=== PATIENT | female | born 1965 | race Caucasian/White ===

== ENCOUNTER 2017-07-29 07:36 | Inpatient (IN) | payer BC, OTHER ==
[2017-07-27 10:54] VITALS: BMI 42.0
[2017-07-29] MEDS ORDERED: BUPIVACAINE HCL/PF 0.5% (5MG/ML) 10 ML VIAL ONE (08:32)
[2017-07-29] MEDS ORDERED: FLU VACCINE QUAD 60 MCG/0.5 ML (MDV 17-18) IM ONE (08:52)
[2017-07-29] MEDS ORDERED: ceFAZolin SODIUM 1 GM VIAL ONE (09:33)
[2017-07-29] MEDS ORDERED: LIDOCAINE HCL/PF 2% SDV 5ML VIAL ONE (09:33)
[2017-07-29] MEDS ORDERED: fentaNYL CITRATE 250 MCG/5 ML VIAL ONE ×2 (09:33→10:19)
[2017-07-29] MEDS ORDERED: ROCURONIUM BROMIDE 50 MG/5 ML VIAL ONE ×2 (09:34→10:19)
[2017-07-29] MEDS ORDERED: PROPOFOL 20 ML ONE ×2 (09:34)
[2017-07-29] MEDS ORDERED: MIDAZOLAM HCL 2 MG/2 ML SINGLE DOSE VIAL ONE ×2 (09:34)
[2017-07-29] MEDS ORDERED: ceFAZolin SODIUM 1 GM VIAL IVPB ONE (09:50)
[2017-07-29] MEDS ORDERED: HYDROCORTISONE SOD SUCCINATE 2 ML ONE (09:52)
[2017-07-29] MEDS ORDERED: PROMETHAZINE HCL 25 MG/1 ML VIAL IVPUSH PRN (10:28)
[2017-07-29] MEDS ORDERED: LACTATED RINGERS SOLUTION 1,000 ML IV SCH (10:30)
[2017-07-29] MEDS ORDERED: BUPIVACAINE HCL/PF 0.5% (5MG/ML) 10 ML VIAL IJ ONE ×2 (10:34→11:10)
--- NOTE | 2017-07-29 10:41 | HP ---
DATE OF ADMISSION: 07/29/2017 CHIEF COMPLAINT: Morbid obesity. HISTORY OF PRESENT ILLNESS: This patient is a 52-year-old woman with morbid obesity for many years despite multiple attempts at dietary weight loss. She received nutrition, psychological, cardiac, and pulmonary evaluation and clearance prior to undergoing admission for elective laparoscopic sleeve gastrectomy surgery. PAST MEDICAL HISTORY: Significant for asthma and hypothyroidism. No previous surgeries. MEDICATIONS: Include: 1. Synthroid. 2. Steroid for the asthma. 3. Inhaler. 4. Vitamin D. ALLERGIES: Patient has no known allergies. REVIEW OF SYSTEMS: General: Within normal limits. Cardiovascular: Within normal limits. Respiratory: Occasional wheezing. Musculoskeletal: Within normal limits. Gastrointestinal: Within normal limits. PHYSICAL EXAMINATION: General: Awake, alert, in no acute distress. HEENT: No masses palpated. Lungs: Clear bilaterally. No wheezing noted. Heart: Regular sinus rhythm. Abdomen: Noted to be obese, soft, nontender on palpation. Extremities: Within normal limits. IMPRESSION: Morbid obesity. PLAN: OR for laparoscopic vertical sleeve gastrectomy, possible open vertical sleeve gastrectomy. Aria [id number]
[2017-07-29] MEDS ORDERED: GLYCOPYRROLATE 0.2 MG/1 ML VIAL ONE (10:56)
[2017-07-29] MEDS ORDERED: NEOSTIGMINE METHYLSULFATE 0.5 MG/ML - 10 ML MDV ONE (10:57)
[2017-07-29] MEDS ORDERED: METOCLOPRAMIDE HCL INJECTION 10 MG/2 ML VIAL IVPUSH PRN (11:22)
--- NOTE | 2017-07-29 11:28 | OP ---
Operative Note - Note: Operative Date: 07/29/17 Pre-Operative Diagnosis: Morbid Obesity. Asthma Operation: Laparoscopic Vertical Sleeve Gastrectomy. Diagnostic Laparoscopy Findings: Greater Curve Sleeve Gastrectomy performed with #[address] Implants: none Post-Operative Diagnosis: Same as Pre-op Surgeon: Андрей Still Nurse Examiner: Michael Perry Anesthesiologist/BUNDLER: Saloni Osborne Anesthesia: General Specimens Removed: Greater curve of stomach. Wedge Biopsy left lobe of liver Estimated Blood Loss (mls): 30 Drains & Tubes with Location: none Operative Report Dictated: Yes
--- NOTE | 2017-07-29 11:38 | OP ---
Operative Note - Note: Operative Date: 07/29/17 Pre-Operative Diagnosis: Morbid obesity. Vertical sleeve gastrectomy. Rule outleak/stricture Operation: Upper endoscopy/EGD Findings: no leak/obstruction/stricture Post-Operative Diagnosis: Same as Pre-op Surgeon: Michael Perry Anesthesia: General Specimens Removed: None Estimated Blood Loss (mls): 0 Operative Report Dictated: Yes
[2017-07-29] MEDS ORDERED: HYDROmorphone HCL CARPU-JECT 2 MG/1 ML DISP.SYRIN ONE ×2 (11:42→12:23)
[2017-07-29] MEDS: HYDROmorphone HCL CARPU-JECT 1 MG/1 ML DISP.SYRIN IVPUSH PRN ×4 (11:43→13:20)
[2017-07-29] MEDS: METOCLOPRAMIDE HCL INJECTION 10 MG/2 ML VIAL IVPUSH SCH ×2 (12:25→17:49)
--- NOTE | 2017-07-29 12:40 | OP ---
DATE OF OPERATION: 07/29/2017 PREOPERATIVE DIAGNOSIS: 1. Morbid obesity. 2. Asthma. POSTOPERATIVE DIAGNOSIS: 1. Morbid obesity. 2. Asthma. 3. Hiatal hernia. 4. Hepatomegaly. PROCEDURE PERFORMED: 1. Laparoscopic vertical sleeve gastrectomy. 2. Diagnostic laparoscopy. 3. Wedge biopsy of the left lobe of the liver. OPERATING SURGEON: Андрей Still M.D. DENTAL SALES REPRESENTATIVE SURGEON: Michael Perry M.D. ANESTHESIA: General. OPERATIVE PROCEDURE: The patient was brought into the operating room, placed on the operating table in the supine position. All precautions were taken initially including padding for the back and the feet, and Venodyne boots were placed on both lower extremities. At that point the abdomen was prepped and draped in the usual manner. A Veress needle was placed in the left upper quadrant, and a pneumoperitoneum was established. A No. 12 bladeless trocar was placed in the left upper quadrant. Through that trocar, a laparoscopic camera was placed. Under direct vision, a No. 15 bladeless trocar in the midline in a supraumbilical position followed by a No. 5 bladeless trocar in the right upper quadrant, and a No. 5 bladeless trocar below the left costal margin. A Denise liver retractor was then placed in the epigastrium to retract left lobe of liver. The left lobe was noted to be extremely enlarged and with a cobblestone appearance. It was decided therefore that a wedge biopsy would be performed. With the electrocautery turned higher on the edge of the left lobe of the liver inferiorly and somewhat laterally, first the liver capsule and the parenchyma were scored with the electrocautery and a wedge piece was sent off the field to Pathology of the specimen. Some minor bleeding was noted from the parenchyma which was easily controlled with the electrocautery. At this point the patient was placed in 20-degree reverse Trendelenburg position by anesthesia. Evaluation of the proximal stomach showed what appeared to be an anterior hiatal hernia with part of the stomach reduced into the . With the assistance surgeon retracting the stomach inferiorly, the operating surgeon was able to dissect the fat around the hernia and dissect it off of the hernia. Both the left danitza and then the right danitza were dissected of all tissue and free. They were in full view and appeared to have a moderate sized defect. The Endo stick was used to place a [id number] through both the left and right crura muscles and this was tied and when completed the hernia was repaired but it was not too tight so it would not cause postoperative dysphagia. At this point attention was directed to the distal stomach where the pylorus was found. Then 6 cm were measured proximally and here on the greater curve, the operating surgeon lifted the stomach toward the anterior abdominal wall as the special education assistant surgeon retracted the gastrocolic ligament inferior. The LigaSure device was used to dissect the gastrocolic ligament and then the short gastric vessels off the greater curve of the stomach. This continued in a superior and vertical direction until the final short gastric vessel between the superior pole, spleen and proximal fundus were divided. At this juncture anesthesia advanced a No. 40 bougie. With the bougie held along the lesser curvature a series of abdirashid were performed with the first two being black load abdirashid 6 cm in length along the bougie. This was followed by a series of purple load abdirashid along the bougie until the final staple was fired in the left upper quadrant and the greater curve was now completely detached from the lesser curve. It should be noted that prior to firing abdirashid both anterior and posterior gallo were check that they were equal in the area of esophagogastric junction and approximately 1 to 1.5 cm of serosa remained on the anterior and posterior surfaces. At this juncture, the special education assistant surgeon Dr. Perry scrubbed out of the procedure and performed an upper endoscopy which will be described in his note. The upper endoscopy showed that there was no obstruction and there were no leaks coming from the staple line. At this point the resected greater curve was removed through the No. 15 trocar site and off the field as specimen. Under direct visualization the No. 12 and the No. 15 trocar sites were closed with endo closure device to prevent internal hernia and bleeding. Under direct visualization all trocars were removed and the pneumoperitoneum was released. All trocar sites then received 0.25% Marcaine and were closed with 4-0 Biosyn in subcuticular fashion. Dressings were applied. Patient awoken from anesthesia and transferred out of the operating room to Recovery Room in stable condition. ESTIMATED BLOOD LOSS: 30 mL. As an addendum it should be noted that the hiatal hernia was unexpected and did add time and complexity to the procedure and it needs to be noted. Aria [id number]
[2017-07-29 12:46] LABS: MCH 28.7 pg (25.7-33.7); MCHC 31.9 g/dl (32.0-36.0); MEAN CELL VOLUME 89.8 fl (80-96); MEAN PLT VOLUME 9.3 fl (7.5-11.1); PLATELET COUNT 255 K/MM3 (134-434); RDW 13.4 % (11.6-15.6)
--- NOTE | 2017-07-29 12:51 | OP ---
DATE OF OPERATION: 07/29/2017 SURGEON: Elise Perry MD PREOPERATIVE DIAGNOSIS: Morbid obesity undergoing a vertical sleeve gastrectomy, rule out leak/obstruction/stricture. PROCEDURE: Upper endoscopy/esophagogastroduodenoscopy. SPECIMEN: None. ESTIMATED BLOOD LOSS: Zero. ANESTHESIA: GET. REASON FOR PROCEDURE: This is a 52-year-old female who is undergoing a vertical sleeve gastrectomy by Dr. Still. DESCRIPTION OF PROCEDURE: After the stomach was transected, request was made for an upper endoscopy to rule out a leak or stricture. The entirety of the esophagus, GE junction, gastric sleeve, and staple line was inspected. There was no evidence of leak, stricture throughout its entirety. The stomach was suctioned, and the endoscope fully removed. The patient tolerated the procedure well, and the remainder of the vertical sleeve gastrectomy was continued. ELISE PERRY M.D. [id number]
[2017-07-29 13:19] LABS: ANION GAP 13 (8-16); CALCIUM 8.4 mg/dL (8.5-10.1); CO2 25 mmol/L (21-32); GLUCOSE,RANDOM 120 mg/dL (74-106)
[2017-07-29 13:23] LABS: ALBUMIN 3.4 g/dl (3.4-5.0); ALK PHOS 78 U/L (45-117); BILIRUBIN,TOTAL 0.3 mg/dL (0.2-1.0); CREATININE 0.7 mg/dL (0.55-1.02); SGOT/AST 34 U/L (15-37); SGPT/ALT 38 U/L (12-78); TOT PROT 7.6 g/dl (6.4-8.2)
[2017-07-29] MEDS: SODIUM CHLORIDE 1,000 ML IV SCH (14:00)
[2017-07-29] MEDS: HYDROmorphone HCL CARPU-JECT 1 MG/1 ML DISP.SYRIN IVPB PRN ×2 (15:50→21:19)
[2017-07-29] MEDS: ONDANSETRON 4 MG/2 ML VIAL IVPUSH PRN ×2 (16:50→22:26)
[2017-07-29] MEDS ORDERED: HYDROCORTISONE SOD SUCCINATE 100 MG/2 ML VIAL IVPB ONE (18:00)
[2017-07-29] MEDS: ENOXAPARIN NA (PORCINE) 40 MG/0.4 ML DISP.SYRIN SQ SCH (21:18)
[2017-07-29] MEDS: FAMOTIDINE 20 MG/50 ML IVPB 20 MG/50 ML MG IVPB SCH (21:18)
[2017-07-29] MEDS: ALBUTEROL SO4 2.5/IPRATROPIUM 0.5 INH SOL 3 ML VIAL.NEB. NEB SCH (23:20)
[2017-07-30] MEDS: METOCLOPRAMIDE HCL INJECTION 10 MG/2 ML VIAL IVPUSH SCH ×4 (01:01→23:58)
[2017-07-30] MEDS: ALBUTEROL SO4 2.5/IPRATROPIUM 0.5 INH SOL 3 ML VIAL.NEB. NEB SCH ×4 (05:57→23:12)
[2017-07-30] MEDS: ONDANSETRON 4 MG/2 ML VIAL IVPUSH PRN ×2 (05:58→11:05)
[2017-07-30] MEDS: SODIUM CHLORIDE 1,000 ML IV SCH ×2 (05:58→11:04)
[2017-07-30] MEDS: HYDROmorphone HCL CARPU-JECT 1 MG/1 ML DISP.SYRIN IVPB PRN ×2 (05:59→10:50)
[2017-07-30 07:35] LABS: MCH 29.4 pg (25.7-33.7); MEAN CELL VOLUME 89.1 fl (80-96); MEAN PLT VOLUME 9.1 fl (7.5-11.1); PLATELET COUNT 221 K/MM3 (134-434); RDW 13.5 % (11.6-15.6); WHITE BLOOD COUNT 9.9 K/mm3 (4.0-10.0)
[2017-07-30 08:29] LABS: ALBUMIN 2.9 g/dl (3.4-5.0); ALK PHOS 62 U/L (45-117); ANION GAP 9 (8-16); BILIRUBIN,TOTAL 0.5 mg/dL (0.2-1.0); CO2 25 mmol/L (21-32); CREATININE 0.6 mg/dL (0.55-1.02); GLUCOSE,RANDOM 95 mg/dL (74-106); SGOT/AST 43 U/L (15-37); SGPT/ALT 40 U/L (12-78); TOT PROT 6.4 g/dl (6.4-8.2)
[2017-07-30] MEDS: ENOXAPARIN NA (PORCINE) 40 MG/0.4 ML DISP.SYRIN SQ SCH ×2 (09:52→22:26)
[2017-07-30] MEDS: FAMOTIDINE 20 MG/50 ML IVPB 20 MG/50 ML MG IVPB SCH ×2 (09:53→22:25)
[2017-07-30] MEDS ORDERED: ONDANSETRON 4 MG/2 ML VIAL IVPUSH PRN (16:45)
[2017-07-30] MEDS: ACETAMINOPHEN 325 MG TABLET (FP) PO PRN ×2 (16:55→22:25)
[2017-07-30] MEDS: oxyCODONE HCL 5 MG TABLET PO PRN ×2 (16:56→22:26)
--- NOTE | 2017-07-30 23:13 | PROC ---
Procedure Note Procedure: Afebrile; VSS Pt doing well Irene PO clear liquids well No N/V UGI- no leak, no obstruction WBC-9.9 H/H- 11.7/35.5 P- Increase OOB/ambulate ' Cont DVT prophylaxis Cont incentive spirometer/ resp treatments
[2017-07-30] MEDS ORDERED: POTASSIUM CHLORIDE TABS 10 MEQ TABLET.ER (FP) PO ONE (23:16)
[2017-07-31] MEDS: ACETAMINOPHEN 325 MG TABLET (FP) PO PRN (06:02)
[2017-07-31] MEDS: METOCLOPRAMIDE HCL INJECTION 10 MG/2 ML VIAL IVPUSH SCH (06:03)
[2017-07-31] MEDS: oxyCODONE HCL 5 MG TABLET PO PRN (06:03)
[2017-07-31] MEDS: ALBUTEROL SO4 2.5/IPRATROPIUM 0.5 INH SOL 3 ML VIAL.NEB. NEB SCH (06:50)
[2017-07-31 09:56] VITALS: BP 150/78; PULSE 84; TEMP 98.7
== END 2017-07-31 09:40 | disposition home or self-care (01) | DRG 621 ==
LOC: JSAMEDAYSX 07:36 → J4W 15:20 → EDSTATUS 16:30
PROVIDERS: ADMIT Surgery; ATTEND Surgery
PROC: 0FB23ZX Excision of Left Lobe Liver, Percutaneous Approach, Diagnostic (ICD-10-PCS; 2017-07-29)
PROC: 0DB64Z3 Excision of Stomach, Percutaneous Endoscopic Approach, Vertical (ICD-10-PCS; principal; 2017-07-29 09:00)
DX: E66.01 Morbid (severe) obesity due to excess calories (principal); Z68.41 Body mass index [BMI] 40.0-44.9, adult; J45.909 Unspecified asthma, uncomplicated; K44.9 Diaphragmatic hernia without obstruction or gangrene; R16.0 Hepatomegaly, not elsewhere classified
CPT/HCPCS: 36415; 74241-TC; 80053; 84703; 85027; 86850; 86900; 86901; 88305-TC; 88307-TC; 88313-TC; 90688; 94640; 94760; G0008

== ENCOUNTER 2018-10-12 06:21 | Day surgery (SDC) | payer BC, OTHER ==
[2018-10-04 15:21] VITALS: BMI 31.0
[2018-10-12] MEDS ORDERED: CIPROFLOXACIN 0.3% EYE DROPS 5 ML BOTTLE ONE (06:40)
[2018-10-12] MEDS ORDERED: CYCLOPENTOLATE 2% OPHTH SOLN 2 ML BOTTLE ONE (06:40)
[2018-10-12] MEDS ORDERED: PHENYLEPHRINE 2.5% OPHTH SOLN 15 ML BOTTLE ONE (06:41)
[2018-10-12] MEDS ORDERED: TROPICAMIDE 1% OPHTH SOLN 15 ML BOTTLE ONE (06:41)
[2018-10-12] MEDS ORDERED: MIDAZOLAM HCL 2 MG/2 ML SINGLE DOSE VIAL ONE ×2 (07:10→08:24)
[2018-10-12] MEDS ORDERED: LIDOCAINE 1% P/F 10 MG/ML VIAL ONE (07:21)
[2018-10-12] MEDS ORDERED: BSS (NA/CA/MG/K) BALANCED SALT SOLUTION OPHTH SOLN 15 ML BOTTLE ONE (07:22)
[2018-10-12] MEDS ORDERED: TETRACAINE 0.5% OPHTH SOLN 2 ML BOTTLE ONE (07:22)
[2018-10-12] MEDS ORDERED: CARBACHOL 0.01% INTRA-OCULAR 1.5 ML VIAL ONE (07:23)
[2018-10-12] MEDS ORDERED: NEO/POLYMYX B SULF/DEXAMETH OPHTHALMIC 5ML BOTTLE ONE (07:23)
[2018-10-12] MEDS ORDERED: EPINEPHrine/PF 1 MG/1 ML (1:1,000) AMPULE ONE (07:25)
[2018-10-12 09:06] VITALS: TEMP 97.8
[2018-10-12 09:29] VITALS: BP 115/68; PULSE 69
--- NOTE | 2018-10-13 12:50 | OP ---
DATE OF OPERATION: 10/12/2018 OPERATIVE PROCEDURE: Lens Phacoemulsification with Posterior Chamber Intraocular Lens Placement, Right Eye PREOPERATIVE DIAGNOSIS: Visually Significant Cataract of Right Eye POSTOPERATIVE DIAGNOSIS: Visually Significant Cataract of Right Eye SURGEON: Clive Lucio M.D. ANESTHESIA: MAC PROCEDURE: The patient was brought to the operating room and placed under monitored anesthesia care by Anesthesia. A drop of Tetracaine was then placed over the right eye. The patient was then prepped and draped in the usual sterile manner. A speculum was then placed over the right eye. The eye was then well irrigated with copious amounts of BSS (balanced salt solution). The operating microscope was then moved into position. A paracentesis was performed using a 15 degree blade. At this point 0.5 mL of 1% preservative free-lidocaine was injected into the anterior chamber. Amvisc plus was then injected into the anterior chamber. A clear corneal incision was then formed using a 2.2 mm keratome. A capsulorrhexis was then performed in a continuous circular fashion beginning with a cystotome completed with an Utratas forceps. Hydrodissection was then performed using BSS on a cannula. The phaco probe was then introduced through the corneal wound and the cataract was removed using the phaco chop technique. Approximately 3 seconds of absolute phaco time was used. The remaining cortex was then removed using irrigation and aspiration with an I/A probe. The capsule was then filled with regular Amvisc and the capsule was noted to be intact. A previously selected foldable posterior chamber intraocular lens was then injected into the capsule through the corneal wound using a lens injector. It was then dialed into position using a Sinskey hook. The Amvisc was then removed using irrigation and aspiration. Miostat was then injected through the paracentesis to constrict the pupil. The paracentesis and corneal wound were then hydrated and noted to be water tight. A drop of Maxitrol was then placed over the eye. The speculum was removed and clear shield was taped over the eye. The patient tolerated the procedure well and there were no surgical complications. The patient was asked to follow up in my office the next day. CLIVE LUCIO M.D. [id number]
== END 2018-10-12 09:45 | disposition home or self-care (01) ==
LOC: FASU 06:21
PROVIDERS: ATTEND Ophthalmology
PROC: 08RJ3JZ Replacement of Right Lens with Synthetic Substitute, Percutaneous Approach (ICD-10-PCS; principal; 2018-10-12 08:27)
DX: H26.8 Other specified cataract (principal)
CPT/HCPCS: 84703

== ENCOUNTER 2018-10-26 10:12 | Day surgery (SDC) | payer BC ==
[2018-10-21 12:25] VITALS: BMI 31.0
[2018-10-26] MEDS: TROPICAMIDE 1% OPHTH SOLN 15 ML BOTTLE ONE ×3 (11:15→11:25)
[2018-10-26] MEDS: CIPROFLOXACIN 0.3% EYE DROPS 5 ML BOTTLE ONE ×3 (11:15→11:25)
[2018-10-26] MEDS: PHENYLEPHRINE 2.5% OPHTH SOLN 15 ML BOTTLE ONE ×3 (11:15→11:25)
[2018-10-26] MEDS: CYCLOPENTOLATE 2% OPHTH SOLN 2 ML BOTTLE ONE ×3 (11:15→11:25)
[2018-10-26] MEDS ORDERED: NEO/POLYMYX B SULF/DEXAMETH OPHTHALMIC 5ML BOTTLE ONE (11:28)
[2018-10-26] MEDS ORDERED: MIDAZOLAM HCL 2 MG/2 ML SINGLE DOSE VIAL ONE ×2 (12:20→12:29)
[2018-10-26 13:52] VITALS: TEMP 98.5
[2018-10-26 13:54] VITALS: BP 108/58; PULSE 72
== END 2018-10-26 13:55 | disposition home or self-care (01) ==
LOC: FASU 10:12
PROVIDERS: ATTEND Ophthalmology
PROC: 08RK3JZ Replacement of Left Lens with Synthetic Substitute, Percutaneous Approach (ICD-10-PCS; principal; 2018-10-26 11:30)
DX: H26.8 Other specified cataract (principal)
CPT/HCPCS: 84703

== ENCOUNTER 2020-04-15 08:02 | Day surgery (SDC) | payer BC ==
[2020-04-11 11:21] VITALS: BMI 39.1
[2020-04-15 08:17] VITALS: TEMP 98
[2020-04-15] MEDS ORDERED: LIDOCAINE HCL/PF 2% SDV 5ML VIAL ONE (08:25)
[2020-04-15] MEDS ORDERED: PROPOFOL 20 ML ONE ×4 (08:25)
[2020-04-15] MEDS ORDERED: MIDAZOLAM HCL 2 MG/2 ML SINGLE DOSE VIAL ONE (08:47)
[2020-04-15] MEDS ORDERED: ETOMIDATE 20 MG/10 ML AMPUL IVPUSH ONE (08:47)
[2020-04-15 14:24] VITALS: BP 126/59; PULSE 64
--- NOTE | 2020-04-17 14:56 | PATH ---
Surgical Pathology Report Patient Name: DELORES FIORE [facility]. Rec. #: [id number] /Age/Gender: 1965 (Age: 54) / F Account: [id number] Location: [facility] Taken: 04/15/2020 Received: 04/15/2020 Reported: 04/17/2020 Physicians: Chace Barajas M.D. Specimen(s) Received A: SECOND PORTION DUODENUM B: GASTRIC ANTRUM Clinical History GERD, screening, pre-bariatric checkup Postoperative diagnosis: Gastritis, post sleeve weight gain, normal colon Final Diagnosis A. SECOND PORTION OF DUODENUM, BIOPSY: DUODENAL MUCOSA WITH NO SIGNIFICANT PATHOLOGIC CHANGE. NO HISTOLOGIC EVIDENCE OF INTRAEPITHELIAL LYMPHOCYTOSIS. B. GASTRIC ANTRUM, BIOPSY: GASTRIC MUCOSA WITH CHRONIC GASTRITIS. IMMUNOSTAIN FOR H. PYLORI IS NEGATIVE. NEGATIVE FOR INTESTINAL METAPLASIA. Electronically Signed John Guzman M.D. Gross Description A. Received in formalin, labeled "biopsy second portion of duodenum" is a pearl, irregular portion of soft tissue measuring 0.3 cm. in greatest dimension. The specimen is submitted in toto in one cassette. B. Received in formalin, labeled "biopsy gastric antrum" are 2 pearl, irregular portions of soft tissue measuring 0.3 and 0.4 cm. in greatest dimension. The specimens are submitted in toto in one cassette. 04/16/2020 saudi04/16/2020
== END 2020-04-15 10:25 | disposition home or self-care (01) ==
LOC: FASU-ENDO 08:02
PROVIDERS: ATTEND Internal Medicine Gastroenterology
PROC: 0DB98ZX Excision of Duodenum, Via Natural or Artificial Opening Endoscopic, Diagnostic (ICD-10-PCS; 2020-04-15)
PROC: 0DB68ZX Excision of Stomach, Via Natural or Artificial Opening Endoscopic, Diagnostic (ICD-10-PCS; 2020-04-15)
PROC: 0DJD8ZZ Inspection of Lower Intestinal Tract, Via Natural or Artificial Opening Endoscopic (ICD-10-PCS; principal; 2020-04-15 09:03)
DX: Z12.11 Encounter for screening for malignant neoplasm of colon (principal); K29.50 Unspecified chronic gastritis without bleeding
CPT/HCPCS: 88305-TC; 88342-TC

== ENCOUNTER 2020-12-16 16:51 | Day surgery (SDC) | payer BC, OTHER ==
[2020-12-10 16:47] VITALS: BMI 38.4
[2020-12-16] MEDS: METOCLOPRAMIDE HCL INJECTION 10 MG/2 ML VIAL IVPUSH SCH ×3 (15:05→20:01)
[2020-12-16] MEDS: ACETAMINOPHEN 1000 MG/100 ML VIAL (NON FORMULARY) IVPB ONE ×2 (15:17→17:48)
[2020-12-16 15:34] LABS: HEMATOCRIT 38.4 % (32.4-45.2); HEMOGLOBIN 12.1 GM/dl (10.7-15.3); MCHC 31.5 g/dl (32.0-36.0); MEAN CELL VOLUME 88.9 fl (80-96); MEAN PLT VOLUME 9.2 fl (7.5-11.1); PLATELET COUNT 202 K/MM3 (134-434); RBC 4.32 M/mm3 (3.60-5.2); RDW 13.4 % (11.6-15.6)
[2020-12-16 15:46] LABS: ALBUMIN 3.4 g/dl (3.4-5.0); BILIRUBIN,TOTAL 0.3 mg/dl (0.2-1); CALCIUM 8.7 mg/dl (8.5-10); CREATININE 0.6 mg/dl (0.55-1.3); POTASSIUM 3.9 mmol/L (3.5-5.1); TOT PROT 6.5 g/dl (6.4-8.2)
[~2020-12-16 16:51] MED LIST: ACETAMINOPHEN INJECTION 100 ML IVPB ONE; BUPIVACAINE HCL/PF 0.25% (2.5MG/ML) 10 ML VIAL IJ ONE; BUPIVACAINE HCL/PF 0.25% (2.5MG/ML) 10 ML VIAL ONE; BUPIVACAINE HCL/PF 2.5 MG/ML - 30 ML VIAL IJ ONE; BUPIVACAINE LIPOSOME/PF (EXPAREL) 266 MG/20 ML VIAL ONE; DEXMEDETOMIDINE HCL 200 MCG/2 ML IVPB ONE; FAMOTIDINE 20 MG/50 ML IVPB 20 MG/50 ML MG IVPB ONE; HYDROmorphone HCL/PF 1 MG/ML VIAL IVPB PRN; LACTATED RINGERS SOLUTION 1,000 ML IV SCH; LIDOCAINE HCL 1%, 10 MG/ML (20ML VIAL) ONE; METOCLOPRAMIDE HCL INJECTION 10 MG/2 ML VIAL ONE; MIDAZOLAM HCL 2 MG/2 ML SINGLE DOSE VIAL ONE; NEOSTIGMINE METHYLSULFATE 0.5 MG/1 ML - 10 ML MDV ONE; ONDANSETRON 4 MG/2 ML VIAL IVPUSH PRN; ONDANSETRON 4 MG/2 ML VIAL ONE; PROPOFOL 20 ML ONE; ROCURONIUM BROMIDE 50 MG/5 ML SYRINGE ONE; SODIUM CHLORIDE 0.9% P/F 10 ML VIAL IJ ONE; SODIUM CHLORIDE 1,000 ML IV SCH; SUCCINYLCHOLINE CHLORIDE 200 MG/10 ML SYRINGE ONE; fentaNYL CITRATE 250 MCG/5 ML VIAL ONE
[2020-12-16] MEDS: HYDROmorphone HCL/PF 1 MG/ML VIAL IVPB PRN (19:56)
[2020-12-16] MEDS: FAMOTIDINE 20 MG/50 ML IVPB 20 MG/50 ML MG IVPB SCH (21:44)
[2020-12-16 22:26] LABS: ALBUMIN 3.3 g/dl (3.4-5.0); BILIRUBIN,TOTAL 0.4 mg/dl (0.2-1); CALCIUM 8.6 mg/dl (8.5-10); CREATININE 0.6 mg/dl (0.55-1.3); HEMOGLOBIN 12.1 GM/dl (10.7-15.3); MCH 28.4 pg (25.7-33.7); MCHC 32.6 g/dl (32.0-36.0); MEAN CELL VOLUME 86.9 fl (80-96); PLATELET COUNT 252 K/MM3 (134-434); POTASSIUM 4.3 mmol/L (3.5-5.1); RBC 4.27 M/mm3 (3.60-5.2); RDW 12.9 % (11.6-15.6); TOT PROT 6.8 g/dl (6.4-8.2); WHITE BLOOD COUNT 9.5 K/mm3 (4.0-10.8)
[2020-12-17] MEDS: HYDROmorphone HCL/PF 1 MG/ML VIAL IVPB PRN ×2 (00:02→06:24)
[2020-12-17] MEDS: METOCLOPRAMIDE HCL INJECTION 10 MG/2 ML VIAL IVPUSH SCH ×2 (02:02→09:21)
[2020-12-17] MEDS: ONDANSETRON 4 MG/2 ML VIAL IVPUSH PRN ×2 (06:34→11:09)
[2020-12-17 08:06] LABS: HEMATOCRIT 35.3 % (32.4-45.2); HEMOGLOBIN 11.4 GM/dl (10.7-15.3); MCH 28.6 pg (25.7-33.7); MCHC 32.4 g/dl (32.0-36.0); MEAN CELL VOLUME 88.4 fl (80-96); MEAN PLT VOLUME 9.1 fl (7.5-11.1); PLATELET COUNT 237 K/MM3 (134-434); RBC 3.99 M/mm3 (3.60-5.2); WHITE BLOOD COUNT 7.6 K/mm3 (4.0-10.8)
[2020-12-17 08:13] LABS: BILIRUBIN,TOTAL 0.4 mg/dl (0.2-1); CALCIUM 8.3 mg/dl (8.5-10); CREATININE 0.6 mg/dl (0.55-1.3); POTASSIUM 3.7 mmol/L (3.5-5.1); TOT PROT 6.2 g/dl (6.4-8.2)
[2020-12-17] MEDS: FAMOTIDINE 20 MG/50 ML IVPB 20 MG/50 ML MG IVPB SCH (09:22)
[2020-12-17] MEDS ORDERED: oxyCODONE HCL 5 MG TABLET PO PRN (12:52)
[2020-12-17 15:04] VITALS: BP 129/77; PULSE 61; TEMP 98.2
== END 2020-12-17 14:06 | disposition home or self-care (01) ==
LOC: FM/S 16:51 → FASUSAT 16:51
PROVIDERS: ATTEND Surgery
PROC: 0DQ60ZZ Repair Stomach, Open Approach (ICD-10-PCS; principal; 2020-12-16 13:26)
DX: E66.01 Morbid (severe) obesity due to excess calories (principal); J45.909 Unspecified asthma, uncomplicated
CPT/HCPCS: 36415; 74240-TC-FY; 80053; 85027; 86850; 86900; 86901; 94760; J0131; Q9967

== ENCOUNTER 2020-12-17 20:10 | Emergency (ER) | payer BC, OTHER ==
[2020-12-17] MEDS ORDERED: HYDROmorphone HCL CARPU-JECT 1 MG/1 ML DISP.SYRIN IVPUSH ONE (20:31)
[2020-12-17] MEDS ORDERED: ACETAMINOPHEN 1000 MG/100 ML VIAL (NON FORMULARY) IVPB ONE (20:31)
[2020-12-17 20:35] VITALS: BP 156/71; PULSE 72; BMI 24.5
[2020-12-17] MEDS ORDERED: SODIUM CHLORIDE 1,000 ML IV ONE ×2 (20:50)
[2020-12-17] MEDS ORDERED: HYDROmorphone HCL/PF 1 MG/ML VIAL ONE (20:55)
[2020-12-17] MEDS ORDERED: ONDANSETRON 4 MG/2 ML VIAL ONE (20:55)
[2020-12-17] MEDS ORDERED: ACETAMINOPHEN INJECTION 100 ML IVPB ONE (20:55)
[2020-12-17 21:10] LABS: HEMATOCRIT 38.2 % (32.4-45.2); HEMOGLOBIN 12.5 GM/dl (10.7-15.3); MCH 28.8 pg (25.7-33.7); MCHC 32.8 g/dl (32.0-36.0); MEAN CELL VOLUME 87.9 fl (80-96); MEAN PLT VOLUME 8.9 fl (7.5-11.1); PLATELET COUNT 256 K/MM3 (134-434); RBC 4.34 M/mm3 (3.60-5.2); RDW 13.1 % (11.6-15.6); WHITE BLOOD COUNT 8.9 K/mm3 (4.0-10.8)
[2020-12-17] MEDS ORDERED: ONDANSETRON 4 MG/2 ML VIAL IVPUSH ONE (21:10)
[2020-12-17 21:18] LABS: ALBUMIN 3.7 g/dl (3.4-5.0); ALK PHOS 69 U/L (45-117); ANION GAP 7 MMOL/L (8-16); BILIRUBIN,TOTAL 0.6 mg/dl (0.2-1); CALCIUM 8.4 mg/dl (8.5-10); CHLORIDE 100 mmol/L (98-107); CO2 27 mmol/L (21-32); CREATININE 0.7 mg/dl (0.55-1.3); GLUCOSE,RANDOM 101 mg/dl (74-106); POTASSIUM 3.4 mmol/L (3.5-5.1); SGOT/AST 32 U/L (15-37); SGPT/ALT 23 U/L (13-61); SODIUM 134 mmol/L (136-145)
[2020-12-17 21:47] LABS: PLATELET ESTIMATE ADEQUATE
[2020-12-17] MEDS ORDERED: ONDANSETRON *ODT* 4 MG TABLET SL ONE (23:15)
[2020-12-17] MEDS ORDERED: ONDANSETRON *ODT* 4 MG TABLET ONE (23:16)
[2020-12-17 23:24] VITALS: TEMP 99.8
== END 2020-12-17 23:25 | disposition home or self-care (01) ==
LOC: FER 20:10
PROC: 3E0333Z Introduction of Anti-inflammatory into Peripheral Vein, Percutaneous Approach (ICD-10-PCS; principal; 2020-12-17)
PROC: 3E033NZ Introduction of Analgesics, Hypnotics, Sedatives into Peripheral Vein, Percutaneous Approach (ICD-10-PCS; 2020-12-17)
PROC: 3E033GC Introduction of Other Therapeutic Substance into Peripheral Vein, Percutaneous Approach (ICD-10-PCS; 2020-12-17)
PROC: 3E0337Z Introduction of Electrolytic and Water Balance Substance into Peripheral Vein, Percutaneous Approach (ICD-10-PCS; 2020-12-17)
DX: E86.0 Dehydration (principal); R10.9 Unspecified abdominal pain
CPT/HCPCS: 36415; 71045-TC-FY; 74177-TC; 80053; 81003; 82550; 83605; 84484; 85025; 87040; 87086; 93005; 99285-25; C9803; J0131; Q0162; Q9967; U0003; U0005

== ENCOUNTER 2022-06-11 08:44 | Day surgery (SDC) | payer OTHER, BC ==
[2022-06-09 12:03] VITALS: BMI 36.9
[2022-06-11] MEDS ORDERED: BUPIVACAINE HCL/PF 0.25% (2.5MG/ML) 10 ML VIAL ONE (10:42)
[2022-06-11] MEDS ORDERED: MIDAZOLAM HCL 2 MG/2 ML SINGLE DOSE VIAL ONE ×2 (10:56→11:09)
[2022-06-11] MEDS ORDERED: BUPIVACAINE HCL/PF 0.25% (2.5MG/ML) 10 ML VIAL IJ ONE (11:17)
[2022-06-11] MEDS ORDERED: oxyCODONE HCL 5 MG TABLET PO PRN ×2 (11:56)
[2022-06-11] MEDS ORDERED: ONDANSETRON 4 MG/2 ML VIAL IVPUSH PRN (11:56)
[2022-06-11] MEDS ORDERED: FENTANYL CITRATE/PF 50 MCG/ML VIAL ONE (12:31)
[2022-06-11] MEDS ORDERED: ACETAMINOPHEN INJECTION 100 ML IVPB ONE (12:36)
[2022-06-11] MEDS ORDERED: ACETAMINOPHEN 1000 MG/100 ML BAG IVPB ONE ×2 (12:39→14:28)
[2022-06-11 13:21] VITALS: RESP 18; TEMP 97.8
[2022-06-11 16:05] VITALS: BP 137/52; PULSE 72
== END 2022-06-11 16:05 | disposition home or self-care (01) ==
LOC: FASU 08:44
PROVIDERS: ATTEND Orthopaedic Surgery Sports Medicine
PROC: 0SBD4ZZ Excision of Left Knee Joint, Percutaneous Endoscopic Approach (ICD-10-PCS; principal; 2022-06-11 11:17)
DX: M23.92 Unspecified internal derangement of left knee (principal); M67.52 Plica syndrome, left knee; M94.28 Chondromalacia, other site
CPT/HCPCS: 94760

== ENCOUNTER 2024-12-07 08:33 | Day surgery (SDC) | payer BC, OTHER ==
[2024-12-04 13:19] VITALS: BMI 36.4
[2024-12-07 08:53] VITALS: RESP 18
[2024-12-07] MEDS ORDERED: LIDOCAINE 1%/EPI 1:100000 (20 ML MULTI DOSE VIAL) ONE (11:45)
[2024-12-07] MEDS ORDERED: PROPOFOL 20 ML ONE (12:03)
[2024-12-07] MEDS ORDERED: MIDAZOLAM HCL 2 MG/2 ML SINGLE DOSE VIAL ONE (12:03)
[2024-12-07] MEDS ORDERED: PROMETHAZINE HCL 25 MG/1 ML VIAL IVPB PRN (12:48)
[2024-12-07] MEDS ORDERED: LACTATED RINGERS SOLUTION 1,000 ML IV SCH (13:00)
[2024-12-07] MEDS: KETOROLAC TROMETHAMINE 30 MG/1 ML VIAL IVPUSH ONE (13:30)
[2024-12-07] MEDS ORDERED: oxyCODONE HCL 5 MG TABLET PO PRN (13:30)
[2024-12-07] MEDS: ACETAMINOPHEN 1000 MG/100 ML BAG IVPB ONE (13:32)
[2024-12-07] MEDS ORDERED: ACETAMINOPHEN INJECTION 100 ML ONE (13:33)
[2024-12-07] MEDS ORDERED: KETOROLAC TROMETHAMINE 30 MG/1 ML VIAL ONE (13:33)
[2024-12-07 13:55] VITALS: TEMP 97.3
[2024-12-07] MEDS ORDERED: ONDANSETRON 4 MG/2 ML VIAL IVPUSH PRN (14:00)
[2024-12-07 14:26] VITALS: BP 121/71; PULSE 68
== END 2024-12-07 14:33 | disposition home or self-care (01) ==
LOC: FASU 08:33
PROVIDERS: ATTEND Orthopaedic Surgery Sports Medicine
PROC: 01N54ZZ Release Median Nerve, Percutaneous Endoscopic Approach (ICD-10-PCS; principal; 2024-12-07 12:24)
DX: G56.01 Carpal tunnel syndrome, right upper limb (principal)
CPT/HCPCS: 94760; J0131